=== PATIENT | female | born 1990 | race Caucasian/White ===

== ENCOUNTER 2023-08-09 08:00 | Outpatient (CLI) | payer OTHER ==
[2023-08-09 15:58] LABS: BILIRUBIN,URINE NEGATIVE (NEGATIVE); GLUCOSE, URINE (UA) NEGATIVE (NEGATIVE); KETONES,URINE (UA) NEGATIVE (NEGATIVE); LEUKOCYTE ESTERASE, URINE NEGATIVE (NEGATIVE); NITRITE,URINE NEGATIVE (NEGATIVE); OCCULT BLOOD,URINE NEGATIVE (NEGATIVE); PH,URINE 6.5 PH (5.0-7.5); PROTEIN,URINE NEGATIVE (NEGATIVE); UROBILINOGEN,URINE 0.2 (NORMAL) E.U./dL (NORMAL)
[2023-08-09 16:31] LABS: BACTERIA,URINE None Seen /HPF (None Seen); CLARITY,URINE CLEAR (CLEAR); RBC,URINE None Seen /HPF (0-5); SQUAMOUS EPITHELIAL CELL,UR NONE SEEN (<= Few); WBC,URINE 0-3 /HPF (0-5)
== END 2023-08-09 23:59 | disposition home or self-care (01) ==
LOC: LAB.WC 08:00
PROVIDERS: ATTEND Obstetrics & Gynecology
DX: Z34.90 Encounter for supervision of normal pregnancy, unspecified, unspecified trimester (principal)
CPT/HCPCS: 81001; 87086

== ENCOUNTER 2023-08-09 15:16 | Outpatient (CLI) | payer OTHER ==
[2023-08-09 15:33] LABS: BASOPHILS # (AUTO) 0.1 10^3/uL (0.0-0.1); BASOPHILS % (AUTO) 0.7 %; EOSINOPHILS # (AUTO) 0.1 10^3/uL (0.0-0.7); EOSINOPHILS % (AUTO) 1.7 %; HCT - HEMATOCRIT 34.1 % (37.0-47.0); HGB - HEMOGLOBIN 10.8 g/dL (12.0-16.0); LYMPHOCYTES # (AUTO) 2.7 10^3/uL (1.5-3.5); LYMPHOCYTES % (AUTO) 35.5 %; MEAN CORPUSCULAR HEMOGLOBIN 26.7 pg (27.0-31.0); MEAN CORPUSCULAR HGB CONC 31.7 g/dL (32.0-36.0); MEAN CORPUSCULAR VOLUME 84.2 fL (81.0-99.0); MEAN PLATELET VOLUME 10.8 fL (7.9-10.8); MONOCYTES # (AUTO) 0.6 10^3/uL (0.0-1.0); MONOCYTES % (AUTO) 7.6 %; NEUTROPHILS # (AUTO) 4.1 10^3/uL (1.5-6.6); NEUTROPHILS % (AUTO) 54.2 %; PLT - PLATELET COUNT 285 10^3/uL (130-450); RED BLOOD COUNT 4.05 10^6/uL (4.20-5.40); RED CELL DISTRIBUTION WIDTH 15.3 % (12.0-15.0); WHITE BLOOD COUNT 7.5 x10^3/uL (4.8-10.8)
[2023-08-10 06:11] LABS: HBsAG SCREEN Negative (Negative)
[2023-08-10 07:11] LABS: RPR Non Reactive (Non Reactive)
[2023-08-10 12:09] LABS: VARICELLA-ZOSTER AB IGG 211 index (Immune >165)
[2023-08-11 01:08] LABS: HIV SCREEN 4TH GENERATION Non Reactive (Non Reactive)
== END 2023-08-09 15:17 | disposition home or self-care (01) ==
LOC: LAB 15:16
PROVIDERS: ATTEND Obstetrics & Gynecology
DX: Z34.90 Encounter for supervision of normal pregnancy, unspecified, unspecified trimester (principal)
CPT/HCPCS: 36415; 84702; 85025; 86592; 86762; 86787; 86803; 86850; 86900; 86901; 87340; 87389

== ENCOUNTER 2023-08-11 12:44 | Outpatient (CLI) | payer OTHER | END 2023-08-11 12:45 | disposition home or self-care (01) | LOC: LAB 12:44 | PROVIDERS: ATTEND Obstetrics & Gynecology | DX: Z34.90 Encounter for supervision of normal pregnancy, unspecified, unspecified trimester (principal) | CPT/HCPCS: 36415; 84702 ==

== ENCOUNTER 2023-08-15 10:46 | Outpatient (CLI) | payer OTHER | END 2023-08-15 10:47 | disposition home or self-care (01) | LOC: LAB 10:46 | PROVIDERS: ATTEND Obstetrics & Gynecology | DX: Z34.90 Encounter for supervision of normal pregnancy, unspecified, unspecified trimester (principal) | CPT/HCPCS: 36415; 84702 ==

== ENCOUNTER 2023-08-24 11:50 | Outpatient (CLI) | payer OTHER ==
--- NOTE | 2023-08-24 13:52 | Ultrasound Report ---
PROCEDURE: OB 1st Trimester w/TV INDICATIONS: POSITIVE TEST OUTSIDE/PRIOR DATING DATA: Last menstrual period (LMP): Unknown. LMP-based estimated date of delivery (HESHAM): Not applicable. First dating scan (date and location): Today's exam. Estimated date of delivery (HESHAM) from first dating scan: 04/19/2024. TECHNIQUE: Real-time scanning was performed of the fetus and maternal pelvic organs, with image documentation. Endovaginal scanning was also performed to better visualize the fetus and maternal ovaries. COMPARISON: None. FINDINGS: Intrauterine gestational sac present. Embryo: Present, measuring 3.1 mm, corresponding to 5 weeks 6 days Heart rate: 118 bpm bpm. Other: Small perigestational fluid collection measuring 0.5 x 2.3 cm. Measurement variability in dating: +/- 4 weeks by LMP, +/- 7 days by mean sac diameter (use before 6 weeks gestation if crown-rump length not able to be measured), +/- 5 days by crown-rump length (6-12 weeks gestation). Maternal organs: Ovaries appear within normal limits, with a right-sided corpus luteum. IMPRESSION: Single living intrauterine at 5 weeks 6 days, HESHAM of 04/19/2024. Small perigestational fluid collection. Reviewed by: Omkar Portillo MD on 08/24/2023 1:51 PM PDT Approved by: Omkar Portillo MD on 08/24/2023 1:51 PM PDT Station ID: [id number]
== END 2023-08-24 11:51 | disposition home or self-care (01) ==
LOC: DI 11:50
PROVIDERS: ATTEND Obstetrics & Gynecology
DX: Z34.91 Encounter for supervision of normal pregnancy, unspecified, first trimester (principal)

== ENCOUNTER 2023-09-01 10:49 | Outpatient (CLI) | payer OTHER ==
[2023-09-01 11:35] LABS: THYROID STIMULATING HORMONE 3.33 uIU/mL (0.34-5.60)
[2023-09-01 11:40] LABS: FERRITIN 2.8 ng/mL (11.0-306.8)
[2023-09-02 07:11] LABS: VITAMIN D 25-HYDROXY 23.7 ng/mL (30.0-100.0)
[2023-09-02 18:10] LABS: THYROGLOBULIN ANTIBODY <1.0 IU/mL (0.0-0.9); THYROID PEROXIDASE (TPO) AB <9 IU/mL (0-34)
== END 2023-09-01 10:50 | disposition home or self-care (01) ==
LOC: LAB 10:49
PROVIDERS: ATTEND Nurse Practitioner
DX: E89.0 Postprocedural hypothyroidism (principal)
CPT/HCPCS: 36415; 82306; 82728; 84443; 86376; 86800

== ENCOUNTER 2023-09-16 08:00 | Outpatient (CLI) | payer OTHER ==
[2023-09-16 23:19] LABS: CHLAMYDIA TRACHOMATIS DNA NEGATIVE (NEGATIVE); NEISSERIA GONORRHOEAE DNA NEGATIVE (NEGATIVE); TRICHOMONAS VAGINALIS DNA NEGATIVE (NEGATIVE)
== END 2023-09-16 23:59 | disposition home or self-care (01) ==
LOC: LAB.WC 08:00
PROVIDERS: ATTEND Nurse Practitioner
DX: Z11.3 Encounter for screening for infections with a predominantly sexual mode of transmission (principal)
CPT/HCPCS: 87491; 87591; 87661

== ENCOUNTER 2023-09-16 16:35 | Outpatient (CLI) | payer OTHER ==
--- NOTE | 2023-09-17 07:50 | Ultrasound Report ---
PROCEDURE: OB 1st Trimester w/TV INDICATIONS: ABNORMAL ULTRASOUND OUTSIDE/PRIOR DATING DATA: Last menstrual period (LMP): Not known. First dating scan (date and location): 08/24/2023. Estimated date of delivery (HESHAM) from first dating scan: 04/19/2024. TECHNIQUE: Real-time scanning was performed of the fetus and maternal pelvic organs, with image documentation. Endovaginal scanning was also performed to better visualize the fetus and maternal ovaries. COMPARISON: 08/24/2023 FINDINGS: Intrauterine gestation is present measuring the crown-rump length is 0.77 cm. This corresp onds to an ultrasound age of 6 weeks and 5 days however, no cardiac motion is detected. A yolk sac is present. Subchorionic hemorrhage measures 3.4 x 3 cm. Ovaries are not well seen. IMPRESSION: Intrauterine gestation. [place]-rump length is 0.77 cm with no cardiac motion detected by endovaginal u ltrasound, per SRU criteria, this is diagnostic of failure. Reviewed by: Rm Delarosa MD on 09/17/2023 7:48 AM PDT Approved by: Rm Delarosa MD on 09/17/2023 7:48 AM PDT Station ID: [id number]
== END 2023-09-16 16:36 | disposition home or self-care (01) ==
LOC: DI 16:35
PROVIDERS: ATTEND Nurse Practitioner
DX: O02.1 Missed abortion (principal); Z11.3 Encounter for screening for infections with a predominantly sexual mode of transmission
CPT/HCPCS: 87491; 87591; 87661

== ENCOUNTER 2023-09-27 08:27 | Day surgery (SDC) | payer OTHER ==
[2023-09-27] MEDS: LACTATED RINGERS 1,000 ML IV ONE ×3 (08:30→10:51)
[2023-09-27] MEDS: DOXYCYCLINE 100 MG TABLET PO ONE (08:42)
[2023-09-27] MEDS ORDERED: ATROPINE ABBOJECT 1 MG/10 ML SYRINGE IVP PRN ×2 (08:50→09:29)
[2023-09-27] MEDS ORDERED: MORPHINE 2 MG/ML CARPUJECT IVP PRN ×2 (08:50→09:29)
[2023-09-27] MEDS ORDERED: fentaNYL 100 MCG/2 ML VIAL IVP PRN ×2 (08:50→09:29)
[2023-09-27] MEDS ORDERED: METOCLOPRAMIDE 10 MG/2 ML VIAL IVP PRN (08:50)
[2023-09-27] MEDS ORDERED: ONDANSETRON 4 MG/2 ML VIAL IVP PRN ×2 (08:50→09:29)
[2023-09-27] MEDS ORDERED: HYDROmorphone 0.5 MG/0.5 ML SYRINGE IVP PRN ×2 (08:50→09:29)
[2023-09-27] MEDS ORDERED: NALOXONE 0.4 MG/ML VIAL IVP PRN ×2 (08:50→09:29)
[2023-09-27] MEDS ORDERED: ePHEDrine 50 MG/ML VIAL IVP PRN (08:50)
[2023-09-27] MEDS ORDERED: LACTATED RINGERS 1,000 ML IV SCH ×2 (09:00→10:00)
[2023-09-27 09:25] LABS: BASOPHILS # (AUTO) 0.1 10^3/uL (0.0-0.1); EOSINOPHILS # (AUTO) 0.2 10^3/uL (0.0-0.7); EOSINOPHILS % (AUTO) 2.6 %; HCT - HEMATOCRIT 34.7 % (37.0-47.0); HGB - HEMOGLOBIN 10.8 g/dL (12.0-16.0); LYMPHOCYTES # (AUTO) 1.9 10^3/uL (1.5-3.5); LYMPHOCYTES % (AUTO) 32.5 %; MEAN CORPUSCULAR HEMOGLOBIN 26.7 pg (27.0-31.0); MEAN CORPUSCULAR HGB CONC 31.1 g/dL (32.0-36.0); MEAN CORPUSCULAR VOLUME 85.7 fL (81.0-99.0); MEAN PLATELET VOLUME 11.6 fL (7.9-10.8); MONOCYTES # (AUTO) 0.5 10^3/uL (0.0-1.0); MONOCYTES % (AUTO) 8.3 %; NEUTROPHILS # (AUTO) 3.2 10^3/uL (1.5-6.6); NEUTROPHILS % (AUTO) 55.4 %; PLT - PLATELET COUNT 249 10^3/uL (130-450); RED BLOOD COUNT 4.05 10^6/uL (4.20-5.40); WHITE BLOOD COUNT 5.8 x10^3/uL (4.8-10.8)
[2023-09-27] MEDS: SCOPOLAMINE PATCH TOP ONE (09:27)
--- NOTE | 2023-09-27 09:29 | ANESTHESIA ---
Pre-Anesthesia VS, & Labs - Diagnosis Missed AB - Procedure D&C Vital Signs: Temp Pulse Resp BP Pulse Ox O2 Flow Rate 36.4 C L 55 L 16 91/74 100 09/27/23 08:43 09/27/23 08:43 09/27/23 08:43 09/27/23 08:43 09/27/23 08:43 Height: 5 ft 6 in Weight (kg): 78.2 kg Body Mass Index: 27.8 BMI Classification: Overweight - NPO >8 hours - Is Patient ?: Yes Home Medications and Allergies Home Medications: Ambulatory Orders Ferrous Sulfate 325 mg PO DAILY 09/21/23 Levothyroxine Sodium [Synthroid] 150 mcg PO DAILY 09/21/23 Active Medications Atropine Sulfate (Atropine Abboject 1 Mg/10 Ml Syringe) 0.5 mg IVP Q5M PRN PRN Reason: Bradycardia Stop: 09/28/23 08:51 Ephedrine Sulfate (Ephedrine 50 Mg/Ml Vial) 10 mg IVP Q5M PRN PRN Reason: HYPOTENSION Stop: 09/28/23 08:51 Fentanyl (Fentanyl 100 Mcg/2 Ml Vial) 25 - 50 mcg IVP Q5M PRN PRN Reason: BREAKTHROUGH PAIN (2nd Choice) Stop: 09/28/23 08:51 Hydromorphone HCl (Hydromorphone 0.5 Mg/0.5 Ml Syringe) 0.2 - 0.6 mg IVP Q5M PRN PRN Reason: PAIN (First Choice) Stop: 09/28/23 08:51 Lactated Ringer's (Lr) 1,000 mls @ 100 mls/hr IV .Q10H ADELFO Stop: 09/27/23 18:59 Metoclopramide HCl (Metoclopramide 10 Mg/2 Ml Vial) 10 mg IVP Q6HR PRN PRN Reason: N/V not relieved by Zofran Morphine Sulfate (Morphine 2 Mg/Ml Carpuject) 2 - 4 mg IVP Q5M PRN PRN Reason: PAIN (3rd Choice) Stop: 09/28/23 08:51 Naloxone HCl (Naloxone 0.4 Mg/Ml Vial) 0.1 mg IVP Q2M PRN PRN Reason: RESP RATE <8 Stop: 09/28/23 08:51 Ondansetron HCl (Ondansetron 4 Mg/2 Ml Vial) 4 mg IVP ONCE PRN PRN Reason: N/V (First Choice) Stop: 09/28/23 08:51 Ferrous Sulfate 325 mg PO DAILY 09/21/23 Levothyroxine Sodium [Synthroid] 150 mcg PO DAILY 09/21/23 Allergies/Adverse Reactions: Allergies Allergy/AdvReac Type Severity Reaction Status Date / Time No Known Drug Allergies Allergy Verified 09/27/23 08:28 Anes History & Medical History - Anesthetic History Anesthesia Complications: reports: No previous complications - Medical History Cardiovascular: reports: None Pulmonary: reports: Asthma Urinary: reports: None Neuro: reports: None Musculoskeletal: reports: None Endocrine/Autoimmune: reports: HyPOthyroidism Skin: reports: None Smoking Status: Never smoker Psychosocial: reports: No issues indicated History of Cancer?: No - Surgical History General: reports: Cholecystectomy, Other Exam General: Alert, Oriented x3, Cooperative, No acute distress Dental: WNL Mouth Openin Fingerbreadth Neck Mobility: Normal Mallampati classification: I Thyromental Distance: 4-6 cm Mental/Cognitive Status: Alert/Oriented X3, Normal for patient Plan Anesthesia Type: General Consent for Procedure(s) Verified and Reviewed: Yes Code Status: Attempt Resuscitation ASA classification: 2-Mild systemic disease Is this case an emergency?: No
[2023-09-27] MEDS ORDERED: PROPOFOL 500 MG/50 ML 500 MG/50 ML VIAL ONE (09:45)
[2023-09-27] MEDS ORDERED: ONDANSETRON 4 MG/2 ML VIAL ONE (09:45)
[2023-09-27] MEDS ORDERED: MIDAZOLAM 2 MG/2 ML VIAL ONE (09:45)
[2023-09-27] MEDS ORDERED: LIDOCAINE-PF 2% 10 ML AMP SUBQ ONE (09:45)
[2023-09-27] MEDS ORDERED: fentaNYL 100 MCG/2 ML VIAL ONE (09:45)
[2023-09-27] MEDS ORDERED: DEXAMETHASONE 4 MG/ML VIAL ONE (09:45)
[2023-09-27] MEDS ORDERED: LIDOCAINE 1%-EPI 1:100000 20 ML MDV ONE (09:48)
[2023-09-27] MEDS ORDERED: SCOPOLAMINE PATCH TOP SCH (10:00)
[2023-09-27] MEDS ORDERED: ACETAMINOPHEN 1,000 MG/100 ML 1,000 MG/100 ML BAG IV ONE (10:16)
[2023-09-27] MEDS: LIDOCAINE 1%-EPI 1:100000 20 ML MDV SUBQ ONE (10:39)
[2023-09-27] MEDS: SILVER NITRATE APPLICATOR TOP ONE (10:40)
[2023-09-27] MEDS ORDERED: PROPOFOL 200 MG/20 ML VIAL IVP ONE (10:42)
[2023-09-27] MEDS ORDERED: HYDROcod/ACETAM 10 MG/325 MG TABLET PO PRN (10:43)
--- NOTE | 2023-09-27 10:47 | OPERATIVE REPORT ---
Operative Report - General Procedure Date: 09/27/23 Planned Procedure: Ultrasound-guided suction D&C Pre-Op Diagnosis: Missed Procedure Performed: Ultrasound-guided suction D&C Post Op Diagnosis: Missed - Procedure Note Primary Surgeon: Destin Walsh MD Anesthesia Provider: Parth Taylor CRNA Anesthesia Technique: Other (TIVA) Pathology: Products of conception IV Fluids (mL): 700 Estimated Blood Loss (mL): 100 Findings: Gestational sac without visible pole, 10 cm uterus on uterine sounding. Complications: None - Other Other Information/Narrative: Suction D&C Prior to the procedure, patient received 200 mg of oral doxycycline. Patient was placed in dorsolithotomy position with Clive stirrups. TIVA was obtained without difficulty. Time out was taken. The pelvis was prepped and the patient was draped in the usual fashion. Careful pelvic examination is performed to locate the position of the uterus and noted no bleeding.. A bivalve speculum was placed in the vagina and the cervix was grasped with a single-tooth tenaculum and gently drawn towards the vaginal outlet. A paracervical block was performed using 2% lidocaine with epinephrine. Using gentle pressure, the cervix was dilated to 8 mm. A 7 mm flexible suction catheter was used for suction. Under ultrasound guidance, the catheter was placed without suction into the uterine cavity. Blood and products of conception were collected in the section catheter container. After adequate removal of products, a sharp curette was used to remove additional products of conception adherent to uterine bloom. The products were collected on a Telfa pad. After removing products of conception and feeling circumferential uterine cri, adequate hemostasis was n oted from coming from the uterus and the tenaculum was removed. Bleeding from the tenaculum sites was stopped with silver nitrate solution. Upon examination the patient was hemostatic and all instruments were removed. Counts were correct. Patient was returned to dorsal supine position and awoke from anesthesia. She was taken to the PACU in good condition.
[2023-09-27] MEDS ORDERED: SILVER NITRATE APPLICATOR TOP ONE (11:12)
[2023-09-27] MEDS ORDERED: oxyCODONE 5 MG TABLET ONE (11:25)
[2023-09-27] MEDS: oxyCODONE 5 MG TABLET PO STA (11:33)
[2023-09-27 11:47] VITALS: BP 106/65; O2SAT 98
--- NOTE | 2023-09-27 19:42 | ANESTHESIA POST OP EVALUATION ---
Anesthesia Post Eval - Post Anesthesia Eval Vitals: Last Vital Signs Temp 36.4 C L 09/27/23 11:40 Pulse 56 L 09/27/23 11:40 Resp 16 09/27/23 11:40 BP 106/65 09/27/23 11:40 Pulse Ox 98 09/27/23 11:40 O2 Flow Rate CV Function Including HR & BP: Stable Pain Control: Satisfactory Nausea & Vomiting: Negative Mental Status: Baseline Respiratory Status: Airway Patent Hydration Status: Satisfactory Anesthesia Complications: None
== END 2023-09-27 08:28 | disposition home or self-care (01) ==
LOC: SDS 08:27
PROVIDERS: ATTEND Obstetrics & Gynecology
PROC: 10D17ZZ Extraction of Products of Conception, Retained, Via Natural or Artificial Opening (ICD-10-PCS; principal; 2023-09-27 09:45)
DX: O02.1 Missed abortion (principal)
CPT/HCPCS: 59820; 85025; A9270; J0131; J3490; J7120

== ENCOUNTER 2023-12-13 10:25 | Outpatient (CLI) | payer OTHER ==
[2023-12-13 10:37] LABS: BASOPHILS # (AUTO) 0.1 10^3/uL (0.0-0.1); BASOPHILS % (AUTO) 0.8 %; EOSINOPHILS # (AUTO) 0.1 10^3/uL (0.0-0.7); HCT - HEMATOCRIT 39.6 % (37.0-47.0); HGB - HEMOGLOBIN 13.1 g/dL (12.0-16.0); LYMPHOCYTES # (AUTO) 2.2 10^3/uL (1.5-3.5); LYMPHOCYTES % (AUTO) 36.3 %; MEAN CORPUSCULAR HEMOGLOBIN 28.5 pg (27.0-31.0); MEAN CORPUSCULAR HGB CONC 33.1 g/dL (32.0-36.0); MEAN CORPUSCULAR VOLUME 86.1 fL (81.0-99.0); MEAN PLATELET VOLUME 10.9 fL (7.9-10.8); MONOCYTES # (AUTO) 0.4 10^3/uL (0.0-1.0); MONOCYTES % (AUTO) 7.2 %; NEUTROPHILS # (AUTO) 3.2 10^3/uL (1.5-6.6); NEUTROPHILS % (AUTO) 53.4 %; PLT - PLATELET COUNT 209 10^3/uL (130-450); RED CELL DISTRIBUTION WIDTH 14.6 % (12.0-15.0); WHITE BLOOD COUNT 6.1 x10^3/uL (4.8-10.8)
== END 2023-12-13 10:26 | disposition home or self-care (01) ==
LOC: LAB 10:25
PROVIDERS: ATTEND Nurse Practitioner
DX: D50.9 Iron deficiency anemia, unspecified (principal)
CPT/HCPCS: 36415; 82728; 85025